=== PATIENT | male | born 1950 | race Caucasian/White ===

== ENCOUNTER 2017-04-16 17:53 | Emergency (ER) | payer MEDICARE, OTHER ==
[~2017-04-16 17:53] MED LIST: ALTA5 PO; ASA5GR PO; COQ10100 MG OR; LIPITOR20 PO; MULTIPLE VIT PO; NIACOR500 MG PO; PLAVIX PO
== END 2017-04-16 20:45 | disposition home or self-care (01) ==
LOC: ER 17:53
DX: R51 Headache (principal); Z95.1 Presence of aortocoronary bypass graft; Z79.82 Long term (current) use of aspirin; Z79.899 Other long term (current) drug therapy
CPT/HCPCS: 70450; 99284